=== PATIENT | female | born 1960 | race African-American/Black ===

== ENCOUNTER → 2016-07-16 | Outpatient (REF) ==
[~2016-07-16] MED LIST: AMBIEN 10MG10 MG PO; AMITIZA24 MCG PO; ASPIR-LOW81 MG PO; CARDIZEM CD240 MG PO; CELEXA 20MG20 MG/TAB PO; CRESTOR 10MG10 MG PO; HUMALOG100 U/ML SC; LANTUS100 U/ML SC; LIPITOR40 MG PO; LISINOPRIL/HCTZ1 TA2 PO; PRINZIDE 25 MG-1 TAB PO; RANITIDINE HYD150 MG PO; REGLAN 10MG10 MG/TAB PO; TAZTIA240 PO; VALIUM 5MG T5 MG/TAB PO; ZANTAC 150MG T150 MG PO; [UNRECOGNIZED DRUG - CODE] PO
== END ==
LOC: ZLAB.WCH 11:51
DX: Z01.89 Encounter for other specified special examinations (principal)

== ENCOUNTER → 2017-01-14 | Outpatient (REF) | LOC: ZLAB.WCH 18:30 | DX: Z01.89 Encounter for other specified special examinations (principal) ==

== ENCOUNTER → 2017-04-15 | Outpatient (REF) | LOC: ZLAB.WCH 17:35 | DX: Z01.89 Encounter for other specified special examinations (principal) ==

== ENCOUNTER → 2017-07-08 | Outpatient (REF) | LOC: ZLAB.WCH 18:08 | DX: Z01.89 Encounter for other specified special examinations (principal) ==

== ENCOUNTER → 2017-10-11 | Outpatient (REF) | LOC: ZLAB.WCH 12:34 | DX: Z01.89 Encounter for other specified special examinations (principal) ==

== ENCOUNTER → 2018-02-09 | Outpatient (REF) | LOC: ZLAB.WCH 17:59 | DX: Z01.89 Encounter for other specified special examinations (principal) ==

== ENCOUNTER → 2018-09-04 | Outpatient (REF) | LOC: ZLAB.WCH 15:54 | DX: Z01.89 Encounter for other specified special examinations (principal) ==

== ENCOUNTER 2018-10-05 19:14 | Inpatient (IN) | payer MEDICAID ==
[~2018-10-05] VITALS: Ht 165.1 cm; Wt 84.9 kg
[~2018-10-05 19:14] MED LIST changes: -HUMALOG100 U/ML SC; +HUMALOG100 U/ML SQ; -LANTUS100 U/ML SC; +LANTUS100 U/ML SQ
[2018-10-05 20:08] LABS: BASO % 0.2 % (0.0-2.0); EOS % 0.1 % (0-4.0); GRAN # 15.9 (1.4-6.5); GRAN % 87.4 % (42.2-75.2); HEMOGLOBIN 12.2 g/dl (12.5-16.0); LYMPH # 0.9 (1.2-3.4); LYMPH % 5.1 % (20.0-51.0); MEAN CELL VOLUME 87 fl (80.0-100.0); MEAN CORPUSCULAR HEMOGLOBIN 29 pg (27.0-31.0); MEAN CORPUSCULAR HGB CONC 33 g/dl (33.0-37.0); MEAN PLATELET VOLUME 12.2 fl (7.4-10.4); MONO # 1.1 (0.1-0.6); MONO % 5.9 % (1.7-9.3); PLATELET COUNT 325 K/mm3 (130-400); RED BLOOD COUNT 4.18 M/mm3 (4.10-5.30); REDCELL DISTRIBUTION WIDTH-CV 14.9 % (11.5-14.5)
[2018-10-05 20:09] LABS: HEMATOCRIT 36.5 % (37.0-47.0)
[2018-10-05 20:16] LABS: ALBUMIN 3.5 gm/dL (3.5-5.0); BILIRUBIN,TOTAL 0.8 mg/dL (0.0-1.0); CALCIUM 8.8 mg/dL (8.4-10.2); POTASSIUM 5.1 mmol/L (3.4-5.0); TOTAL PROTEIN 8.2 gm/dL (6.4-8.2)
[2018-10-05 20:19] LABS: CREATININE, serum 8.87 (0.52-1.25)
[2018-10-05 21:13] LABS: ARTERIAL BLD GAS O2 SATURATION 89.6 % (92-100); ARTERIAL BLD GAS TCO2 CT 21.9; ARTERIAL BLOOD GAS BASE EXCESS -4.1 (-2-2); ARTERIAL BLOOD GAS HCO3 20.8 meq/L (22-26); ARTERIAL BLOOD GAS PCO2 37.3 mmHg (35-45); ARTERIAL BLOOD GAS PO2 67.8 mmHg (80-100); ARTERIAL BLOOD GAS pH 7.36 (7.35-7.45)
[2018-10-05 22:43] LABS: COLLECTION METHOD CLEAN CATCH
[2018-10-05 22:52] LABS: PH 5 (5-8); SQUAMOUS EPITHELIAL 0-2 /hpf; URINE APPEARANCE Cloudy; URINE BACTERIA Rare /hpf; URINE BILIRUBIN Negative (NEGATIVE); URINE BLOOD 3+ (NEGATIVE); URINE COLOR Yellow; URINE GLUCOSE 3+ (NEGATIVE); URINE KETONE Negative (NEGATIVE); URINE LEUKOCYTE ESTERASE 2+ (NEGATIVE); URINE NITRATE Negative (NEGATIVE); URINE PROTEIN(semi-quant) 1+ (NEGATIVE); URINE RBC >50 /hpf; URINE UROBILINOGEN Negative (NEGATIVE)
[2018-10-06] VITALS (628 sets, daily range): BP systolic 138–165; BP diastolic 75–93; PULSE 85–95; TEMP 97.2–100.2; O2SAT 50–100
--- NOTE | 2018-10-06 00:01 | NUR ---
Arrived to the unit via stretcher. Patient alert but confused upon arrival. Speech mumbled and difficult to understand. Able to answer some simple questions appropriately although is slow to respond. Answers are also sometimes contracdictory to previous statements. Unable to obtain accurate med list at this time. Hospitalist aware.
[2018-10-06 00:56] LABS: CALCIUM 7.9 mg/dL (8.4-10.2); POTASSIUM 3.7 mmol/L (3.4-5.0)
[2018-10-06 00:58] LABS: CREATININE, serum 7.22 (0.52-1.25)
--- NOTE | 2018-10-06 01:00 | NUR ---
Hospitalist notified of most recent creatine level and blood glucose of 556. Increased insulin drip by 1 unit.
--- NOTE | 2018-10-06 01:50 | NUR ---
Notified hospitalist of latest potassium results. Received order to change fluids to NS W 20K when last NS bolus is finished.
--- NOTE | 2018-10-06 02:33 | NUR ---
Hospitalist notified of greater than 100 decrease in blood glucose over one hr. Decreased insulin drip by 1 u/hr.
--- NOTE | 2018-10-06 02:45 | NUR ---
Hospitalist notified of elevated BP. Systolic 170's. Order for IV PRN Hydralazine given.
--- NOTE | 2018-10-06 03:04 | NUR ---
Patient irritable with staff during cares; prefers to lay curled in a ball which makes accu checks and blood draws difficult. Have to re-orient frequently to situation and remind patient of the importance of obtaining blood sugars, BP, etc so she will allow access to hand and IV's.
[2018-10-06 03:32] LABS: CALCIUM 7.6 mg/dL (8.4-10.2); POTASSIUM 3.7 mmol/L (3.4-5.0)
[2018-10-06 03:38] LABS: CREATININE, serum 6.65 (0.52-1.25)
[2018-10-06 06:02] LABS: CALCIUM 7.7 mg/dL (8.4-10.2); POTASSIUM 3.9 mmol/L (3.4-5.0)
[2018-10-06 06:08] LABS: CREATININE, serum 6.41 (0.52-1.25)
--- NOTE | 2018-10-06 07:07 | NUR ---
Bedside report recieved from OWEN Calvo. Patient sleeps between disturbances at this time. Insulin gtt concentration and rate verified. MIVF running as ordered. LIJ without complication. Peripheral IV sites x2 CDI. Bed in low and locked position, call light within reach, rails up x3, bed alarm armed. Care assumed.
[2018-10-06 07:41] LABS: MAGNESIUM 3.2 mg/dL (1.6-2.3); POTASSIUM 4.1 mmol/L (3.4-5.0)
[2018-10-06 07:42] LABS: CREATININE, serum 6.26 (0.52-1.25)
[2018-10-06 07:55] LABS: MEAN CELL VOLUME 87 fl (80.0-100.0); MEAN CORPUSCULAR HEMOGLOBIN 29 pg (27.0-31.0); MEAN CORPUSCULAR HGB CONC 34 g/dl (33.0-37.0); MEAN PLATELET VOLUME 11.8 fl (7.4-10.4); PLATELET COUNT 314 K/mm3 (130-400); RED BLOOD COUNT 3.78 M/mm3 (4.10-5.30); REDCELL DISTRIBUTION WIDTH-CV 14.6 % (11.5-14.5)
--- NOTE | 2018-10-06 08:00 | NUR ---
Bedside shift report received from OWEN Moore. Patient is lying in bed, supine, and only responds with grumbles at this time. Assessment is completed and documented. Attempted to reorient patient to place, time, and situation. Patient does not indicate understanding. Call light placed within reach. Bed in lowest position. Bed alarm activated.
[2018-10-06 08:04] LABS: HEMATOCRIT 32.8 % (37.0-47.0)
--- NOTE | 2018-10-06 08:05 | NUR ---
Bedside report provided to OWEN Fairchild. Care transferred.
[2018-10-06 08:43] LABS: BAND 11 % (0-10); EOSINOPHIL 2 % (0-4); LYMPHOCYTE 9 % (20.0-51.0); NEUTROPHILS 71 % (42.0-75.2); PLATELET ESTIMATE NORMAL (NORMAL)
[2018-10-06 08:44] LABS: TARGET CELLS 1+
[2018-10-06 09:16] LABS: CALCIUM 7.9 mg/dL (8.4-10.2); POTASSIUM 4.2 mmol/L (3.4-5.0)
[2018-10-06 09:23] LABS: CREATININE, serum 5.94 (0.52-1.25)
[2018-10-06 11:23] LABS: CREATININE, serum 6.01 (0.52-1.25)
--- NOTE | 2018-10-06 12:00 | NUR ---
Patient remains stable at this time. Assessment completed and documented. Bed alarm remains on and functioning appropriately. Call light within reach. Bed in lowest position.
[2018-10-06 13:20] LABS: CALCIUM 8.2 mg/dL (8.4-10.2); POTASSIUM 3.8 mmol/L (3.4-5.0)
[2018-10-06 13:25] LABS: CREATININE, serum 5.96 (0.52-1.25)
--- NOTE | 2018-10-06 14:00 | NUR ---
Patient states she is thirsty. Damp swab used to moisten mouth, but patient states she wants water. Patient educated that she is NPO at this time. Swallowing assessed with 1 ice chip at this time. Patient does well. Patient given another ice chip and patient coughs. NPO status maintained and no more ice chips will be given at this time.
--- NOTE | 2018-10-06 15:00 | NUR ---
Patient's peripheral IV located in her right breast removed with no complications. Cotton ball and bandaid applied to site.
[2018-10-06 15:38] LABS: CALCIUM 8.1 mg/dL (8.4-10.2); POTASSIUM 3.6 mmol/L (3.4-5.0)
[2018-10-06 15:46] LABS: CREATININE, serum 5.74 (0.52-1.25)
[2018-10-06 15:57] LABS: COLLECTION METHOD CLEAN CATCH
[2018-10-06 16:29] LABS: MUCOUS Present /lpf; PH 5 (5-8); SQUAMOUS EPITHELIAL 0-2 /hpf; URINE APPEARANCE Cloudy; URINE BACTERIA Rare /hpf; URINE BILIRUBIN Negative (NEGATIVE); URINE BLOOD 2+ (NEGATIVE); URINE COLOR Yellow; URINE GLUCOSE Negative (NEGATIVE); URINE KETONE Negative (NEGATIVE); URINE LEUKOCYTE ESTERASE 3+ (NEGATIVE); URINE NITRATE Negative (NEGATIVE); URINE PROTEIN(semi-quant) 1+ (NEGATIVE); URINE RBC >50 /hpf; URINE UROBILINOGEN Negative (NEGATIVE); URINE WBC >50 /hpf
--- NOTE | 2018-10-06 16:32 | NUR ---
Patient remains stable with no significant changes. Patient remains confused and mostly responds with mumbles at this time. Family updated throughout the shift (Patient's daugther and sister) via telephone. Patient has had no visitors yet today. Refer to titration documentation for insulin gtt.
[2018-10-06 17:14] LABS: CALCIUM 8.2 mg/dL (8.4-10.2); POTASSIUM 3.6 mmol/L (3.4-5.0)
[2018-10-06 17:16] LABS: CREATININE, serum 5.73 (0.52-1.25)
[2018-10-06 17:46] LABS: URINE PROTEIN:CREAT RATIO 1.46 (0.00-0.14)
--- NOTE | 2018-10-06 19:00 | NUR ---
Patient's at bedside to assist with discharge. Patient transferred out of hospital via wheelchair by RN with no complications. Patient assisted into passenger side of vehicle with driving.
--- NOTE | 2018-10-06 19:10 | NUR ---
Bedside shift report given to OWEN Ritter. Patient is lying in bed in no apparent distress. Occasionally the patient will mumble and groan, but remains confused and does not answer questions appropriately. Refer to titration documentation for medication rate changes. Call light within reach. Bed in lowest position. Bed alarm on and functioning appropriately.
[2018-10-06 19:20] LABS: CALCIUM 8.3 mg/dL (8.4-10.2); POTASSIUM 3.4 mmol/L (3.4-5.0)
[2018-10-06 19:22] LABS: CREATININE, serum 5.5 (0.52-1.25)
--- NOTE | 2018-10-06 19:40 | NUR ---
RECEIVED REPORT FROM OWEN SAUER. MEDICATIONS AND LINES VARIFIED. PATIENT WAS RESTING IN BED AT THIS TIME. WILL CONTINUE TO MONITOR PATIENT.
--- NOTE | 2018-10-06 20:42 | NUR ---
PATIENT WAS ABLE TO TELL ME HER NAME AND DATE OF . SHE WAS UNSURE OF WHERE SHE WAS AT AND WHAT DAY IT WAS. PATIENT SEEMS TO BE RESTING COMFORTABLY IN BED AT THIS TIME. WILL CONTINUE TO MONITOR PATIENT.
[2018-10-06 21:20] LABS: CALCIUM 8.4 mg/dL (8.4-10.2); POTASSIUM 3.4 mmol/L (3.4-5.0)
[2018-10-06 21:23] LABS: CREATININE, serum 5.41 (0.52-1.25)
--- NOTE | 2018-10-06 22:50 | NUR ---
PATIENTS BLOOD SUGAR DROPPED TO SUDDENLY SO I STOPPED THE DRIP FOR 30 MINUTES ACCORDING TO THE ORDER PARAMETERS. I WILL DECREASE THE INSULIN DOSEAGE BY 2 UNITS WHEN I RESTART THE DRIP.
--- NOTE | 2018-10-06 22:54 | NUR ---
RESTARTED THE INSULIN DRIP AND DECREASED TO AMOUNT FROM 11 UNITS/HR TO 9 UNITS/HR ACCORDING TO THE INSULIN PARAMETER PROTOCOL.
[2018-10-06 23:22] LABS: CALCIUM 8.4 mg/dL (8.4-10.2); POTASSIUM 3.4 mmol/L (3.4-5.0)
[2018-10-06 23:24] LABS: CREATININE, serum 5.26 (0.52-1.25)
[2018-10-07] VITALS (895 sets, daily range): BP systolic 148–164; BP diastolic 72–90; PULSE 84–90; TEMP 98.7–99.4; O2SAT 76–100
--- NOTE | 2018-10-07 00:26 | NUR ---
PATIENT BLOOD SUGAR WAS STILL TO LOW ACCORDING TO PROTOCOL. TURNED OFF INSULIN DRIP. WILL RECHECK BLOOD SUGAR IN 30 MINUTES AND RESUME DRIP THEN.
--- NOTE | 2018-10-07 01:07 | NUR ---
decreased drip titration per protocol parameters.
--- NOTE | 2018-10-07 02:21 | NUR ---
increased insulin drip per protocol parameters. patients blood glucose was higher than recommended range, 120-200. increased drip by 1 unit.
--- NOTE | 2018-10-07 03:25 | NUR ---
INCREASED PATIENTS DRIP RATE PER PHYSICIANS ORDERS.
--- NOTE | 2018-10-07 04:23 | NUR ---
INCREASED INSULIN DRIP PER PHYSICIAN PROTOCOL ACCORDING TO PATIENTS MOST RECENT BLOOD SUGAR.
--- NOTE | 2018-10-07 05:17 | NUR ---
INSULIN DRIP INCREASED PER PHYSICIANS PARAMETERS.
[2018-10-07 05:28] LABS: BASO # 0.1 (0.0-0.2); BASO % 0.2 % (0.0-2.0); EOS # 0.1 (0.0-0.7); EOS % 0.6 % (0-4.0); GRAN # 18.1 (1.4-6.5); GRAN % 83.6 % (42.2-75.2); HEMOGLOBIN 10.2 g/dl (12.5-16.0); LYMPH # 1.5 (1.2-3.4); LYMPH % 6.8 % (20.0-51.0); MEAN CELL VOLUME 87 fl (80.0-100.0); MEAN CORPUSCULAR HEMOGLOBIN 29 pg (27.0-31.0); MEAN CORPUSCULAR HGB CONC 34 g/dl (33.0-37.0); MEAN PLATELET VOLUME 11.4 fl (7.4-10.4); MONO % 4.8 % (1.7-9.3); PLATELET COUNT 304 K/mm3 (130-400); RED BLOOD COUNT 3.49 M/mm3 (4.10-5.30); REDCELL DISTRIBUTION WIDTH-CV 14.8 % (11.5-14.5)
[2018-10-07 05:29] LABS: HEMATOCRIT 30.2 % (37.0-47.0)
[2018-10-07 05:39] LABS: ALBUMIN 2.4 gm/dL (3.5-5.0); BILIRUBIN,TOTAL 0.5 mg/dL (0.0-1.0); CALCIUM 8.1 mg/dL (8.4-10.2); POTASSIUM 3.1 mmol/L (3.4-5.0); TOTAL PROTEIN 6.2 gm/dL (6.4-8.2)
[2018-10-07 05:44] LABS: CREATININE, serum 5.2 (0.52-1.25)
--- NOTE | 2018-10-07 05:56 | NUR ---
CALLED [facility] AND REPORTED CRITICAL WBC COUNT OF 21.7 TO NURSE POLK.
[2018-10-07 06:12] LABS: BAND 7 % (0-10); EOSINOPHIL 2 % (0-4); HYPOCHROMIA 2+; LYMPHOCYTE 11 % (20.0-51.0); NEUTROPHILS 75 % (42.0-75.2); PLATELET ESTIMATE NORMAL (NORMAL)
--- NOTE | 2018-10-07 06:35 | NUR ---
increased insulin drip per physicians parameters.
--- NOTE | 2018-10-07 07:34 | NUR ---
decreased insulin drip per physicians parameters.
--- NOTE | 2018-10-07 08:34 | NUR ---
gave report to marina walsh.
--- NOTE | 2018-10-07 11:16 | NUR ---
SW attempted to meet with patient about discharge planning. Patient was sleeping. SW will try back later today.
--- NOTE | 2018-10-07 13:36 | NUR ---
SW attempted to meet, again. Patient reports she is too tired and would like some coffee. SW reported this to patients nurse. SW will try back later.
--- NOTE | 2018-10-07 14:28 | NUR ---
Pt currently resting in bed VSS at this time, denies pain, A/O x 2, but asking questions to reorient herself. Lungs clear on RA, BP stable with no need to give any bp meds on my shift. Pt up out of bed to use bedside cammode. Remains on insulin gtt and d5 1/2 NS decrease to 100ml/hr per Dr. Abdul's orders. Will continue to check BG. Pt Alert and awaiting dinner. RN bedside swallow determined not coughing or desating with oral intake of jello and water. Will order meal and continue to monitor.
--- NOTE | 2018-10-07 19:15 | NUR ---
Bedside report received from OWEN Guillen.
--- NOTE | 2018-10-07 20:00 | NUR ---
Assessment complete. Patient is laying in bed resting at this time. Patient is alert, but not oriented. Patient thinks she is in [place]. Patient did know that Mothers Day was recently, but was not able to recall day, year, or reason she is in the hospital. Patient does follow commands. Assessment reveals tachypnea with clear lung sounds and diminished bases, breaths are shallow and regular. HR is regular and normal sounds are heard. Bowel sounds are active, abdomen is soft and nontender. Patient has no complaints of pain. Patient states, "I want my meds and I want to sleep." Medications to be provided. No further needs at this time. Will continue to monitor. Call light within reach.
[2018-10-07 22:28] LABS: TRICYCLIC ANTIDEPRESS URINE NEGATIVE
[2018-10-08] VITALS (731 sets, daily range): BP systolic 134–193; BP diastolic 69–102; PULSE 83–90; TEMP 98.6–100.8; O2SAT 75–100
--- NOTE | 2018-10-08 | NUR ---
Assessment complete. Patient asleep at this time, but easily awakens to name. Assessment reveals no changes from previous exam. Patient follows commands, but is still confused and still thinks she is in [place] despite informing her earlier that we are in [place]. Patient follows commands. Patient is still tachypneic with shallow breaths. Patient has no complaints of pain. Patient does have a fever of 100.8. Will notify provider. Patient has no further needs at this time. Will continue to monitor. Call light within reach.
--- NOTE | 2018-10-08 04:00 | NUR ---
Patient awake at this time and calls this nurse into the room. Patient states that she is hungry and wants a bath. Some chicken broth and jello are provided. Explained that the kitchen does not open until 630. She confirmed understanding and provided her breakfast order for when they open. Patient is much more alert than previously and she is more oriented. Patient now knows where she is and what town. States the correct year. She is unable to say the month, but is still aware that mother's day was recently. Assessment complete. No changes phsyically from previous exam. Fever has declined and is now WNL. Patient has complaints of a mild headache, but has already received tylenol. Patient's blood sugar is also down to 152. Patient has no other needs at this time. Will gather supplies for a bedbath. Will continue to monitor. Call light within reach.
--- NOTE | 2018-10-08 04:35 | NUR ---
Patient now denies wanting bath. Will continue to monitor. Call light within reach.
--- NOTE | 2018-10-08 05:05 | NUR ---
OWEN Polk in the room and found patient's left IJ TLC had been pulled out by the patient. Catheter was present and intact when previously in the room. This nurse performed an assessment. Patient shows no signs of bleeding. Tissues surrounding the area are soft to the touch, no blood is noted on the bedding around her. Blue Catheter tip is intact, verified by OWEN Polk and OWEN Calvo. Occlusive dressing placed over site. Nothing further at this time.
--- NOTE | 2018-10-08 05:19 | NUR ---
RN at bedside to draw am labs. Noted that IJ central line was pulled out and lying on patient. Tip of catheter intact; site not bleeding. Pt in no distress at this time and lying calmly in bed. Tegaderm and guaze placed over site. Hospitalist notified.
--- NOTE | 2018-10-08 07:15 | NUR ---
Patient is refusing to allow anyone to draw labs or put an IV at this time. Patient currently has no lines.
--- NOTE | 2018-10-08 07:30 | NUR ---
Bedside report given to OWEN Fields.
--- NOTE | 2018-10-08 08:00 | NUR ---
Shift assessment complete at this time. Plan of care reviewed at bedside with patient. At this time, Pt is currently refusing all IV starts and lab draws. No intravenous access is currently in place after Pt removal of central line earlier in morning. BP markedly elevated, Dr. Hirsch notified and aware, will place orders for resumption of PO meds and PICC line placement. Pt denies pain or any other discomfort. Bed in low position, call light within reach. Will continue to monitor.
[2018-10-08 10:37] LABS: MEAN CELL VOLUME 87 fl (80.0-100.0); MEAN CORPUSCULAR HGB CONC 33 g/dl (33.0-37.0); PLATELET COUNT 333 K/mm3 (130-400); RED BLOOD COUNT 3.46 M/mm3 (4.10-5.30); REDCELL DISTRIBUTION WIDTH-CV 15.3 % (11.5-14.5)
[2018-10-08 10:43] LABS: HEMATOCRIT 30.2 % (37.0-47.0); HEMOGLOBIN 9.9 g/dl (12.5-16.0); MEAN CORPUSCULAR HEMOGLOBIN 29 pg (27.0-31.0)
[2018-10-08 10:56] LABS: CALCIUM 8.4 mg/dL (8.4-10.2); PHOSPHOROUS 3.7 mg/dL (2.5-4.5); POTASSIUM 3.2 mmol/L (3.4-5.0)
[2018-10-08 10:57] LABS: CREATININE, serum 4.41 (0.52-1.25)
--- NOTE | 2018-10-08 13:41 | NUR ---
SW met with patient about discharge planning. Patient lives at home alone. Patient reports she want to go home. Patient's PCP is Dr Olsen and she obtains prescriptions from [facility]. Patient uses a cane but no other DME is reported. Patient has used home health in the past but does not currently use those services. Patient has a DPOA and a copy is in the EMR. Patient will be seen by PT and OT. SW will meet with patient if PT/OT recommend any services once she discharges. SW will continue to follow and assist with any discharge needs.
[2018-10-08 16:57] LABS: URINE PROTEIN:CREAT RATIO 1.1 (0.00-0.14)
--- NOTE | 2018-10-08 19:40 | NUR ---
Bedside report received from OWEN Fields
--- NOTE | 2018-10-08 19:42 | NUR ---
Bedside report given to OWEN Dueñas.
--- NOTE | 2018-10-08 20:00 | NUR ---
Assessment comnplete. Patient resting in bed at this time watching TV. She is alert and oriented and following commands. Lung sounds remain clear with diminished bases. HR regular and WNL. Bowel sounds active. All other findings WNL. Pericare and catheter care provided. Patient has already had a linen change and bath just prior to start of shift. Patient has no other needs at this time. Will continue to monitor. Call light within reach.
--- NOTE | 2018-10-08 21:40 | NUR ---
Patient found to be trying to get out of bed. Patient states, "I am trying to visit with my girlfriend". Let the patient know that there is no one here to visit her right now. Assisted patient to lay back and get comfortable in the blankets. Will continue to monitor. Call light within reach.
[2018-10-09] VITALS (430 sets, daily range): BP systolic 125–147; BP diastolic 56–89; PULSE 79–102; TEMP 97.8–99.2; O2SAT 70–100
--- NOTE | 2018-10-09 | NUR ---
Patient sleeping soundly. Awakens to name. No complaints of pain or signs of distress. Patient requests another glucerna, provided. Vitals remain stable. No further needs. Will continue to monitor. Call light within reach.
--- NOTE | 2018-10-09 04:00 | NUR ---
Patient asleep at this time. Awakens easily to name. No complaints of pain. Vitals remain WNL. No signs of distress. No further needs at this time. Will continue to monitor. Call light within reach.
[2018-10-09 04:51] LABS: MEAN CELL VOLUME 88 fl (80.0-100.0); MEAN CORPUSCULAR HGB CONC 33 g/dl (33.0-37.0); MEAN PLATELET VOLUME 11.2 fl (7.4-10.4); PLATELET COUNT 307 K/mm3 (130-400); RED BLOOD COUNT 3.14 M/mm3 (4.10-5.30); REDCELL DISTRIBUTION WIDTH-CV 15.3 % (11.5-14.5)
[2018-10-09 05:01] LABS: HEMATOCRIT 27.6 % (37.0-47.0); HEMOGLOBIN 9.1 g/dl (12.5-16.0); MEAN CORPUSCULAR HEMOGLOBIN 29 pg (27.0-31.0)
[2018-10-09 05:08] LABS: ALBUMIN 2.5 gm/dL (3.5-5.0); BILIRUBIN,TOTAL 0.3 mg/dL (0.0-1.0); CALCIUM 8.2 mg/dL (8.4-10.2); MAGNESIUM 2.2 mg/dL (1.6-2.3); POTASSIUM 3.6 mmol/L (3.4-5.0); TOTAL PROTEIN 6.6 gm/dL (6.4-8.2)
[2018-10-09 05:39] LABS: BAND 20 % (0-10); EOSINOPHIL 2 % (0-4); LYMPHOCYTE 7 % (20.0-51.0); METAMYELOCYTE 2 % (0-0); NEUTROPHILS 66 % (42.0-75.2)
[2018-10-09 05:42] LABS: PLATELET ESTIMATE NORMAL (NORMAL)
[2018-10-09 05:43] LABS: ANISOCYTOSIS 1+; HYPOCHROMIA 1+
[2018-10-09 05:46] LABS: SCHISTOCYTES 1+; TARGET CELLS 1+
--- NOTE | 2018-10-09 07:15 | NUR ---
BEDSIDE REPORT RECEIVED FROM OWEN MELLO. PATIENT CURRENTLY EATING BREAKFAST. SHE HAS NO C/O'S. CARE ASSUMED.
--- NOTE | 2018-10-09 07:39 | NUR ---
Bedside report given to OWEN Deras
--- NOTE | 2018-10-09 09:00 | NUR ---
PATIENT UP WALKING IN [place] WITH PT. SHE IS STEADY WITH WALKER AND GAIT BELT. SHE STATES SHE'S READY TO GO HOME. I RESPOND BY SAYING THE HOSPITALIST STILL NEEDS TO SEE HER TODAY.
--- NOTE | 2018-10-09 10:00 | NUR ---
PATIENT GETS UP OUT OF RECLINER WITHOUT ASSISTANCE. CHAIR ALARM IN PLACE AND GOES OFF WHEN SHE GET'S UP. SHE GOES BACK TO BED AT THIS TIME. BED ALARM ALSO ACTIVATED. SHE IS REMINDED TO CALL FOR HELP WHEN SHE GETS UP. SHE STATES THAT SHE WANTS TO GO HOME. I REMIND HER THAT SHE WILL BE GOING TO THE MEDICAL FLOOR TODAY AND SHE WILL HAVE MUCH LESS MONITORS ATTACHED TO HER.
--- NOTE | 2018-10-09 11:22 | NUR ---
ROOM ASSIGNMENT FOR MEDICAL ROOM 314 RECEIVED. ATTEMPTED TO CALL REPORT TO OWEN MCCAIN. SHE IS UNAVAILABLE. WILL TRY AGAIN SOON.
--- NOTE | 2018-10-09 12:59 | NUR ---
REPORT GIVEN TO OWEN MCCAIN. JULIO TAKEN UP TO ROOM 314. SHE IS ON TELEMETRY MONITORING. PATIENT UPSET THAT SHE HAS TO STAY IN THE HOSPITAL. PRIOR TO LEAVING ICU, SHE WAS THROWING THINGS FROM HER TRAY ACROSS THE ROOM YELLING AND SCREAMING. DURING HER OUTBURST, SHE YELLED. "You fking moisespaula, i want to go home! Call me a cab! I've been waiting to leave this room since 2 in the morning! You told me at 2 AM i was getting out of here!"
--- NOTE | 2018-10-09 13:00 | NUR ---
Arrived to the room about this time. No pain or needs reported. The call light and bed alarm are in place and the patient made comfortable. Awaiting lunch at this time. BS 330, 10 units to be given with meal. No other needs at this time. The patient was made a fall risk patient.
--- NOTE | 2018-10-09 14:30 | NUR ---
The patient is very anxious and climbing out of the bed. Refusing telemetry. Bailon catheter removed. Bed alarm in place.
--- NOTE | 2018-10-09 16:01 | NUR ---
Valium given for anxiousness. The patient continues to pull at telemetry. ALEJA Salinas called and notified of patient concerns. Telemetry discontinued.
--- NOTE | 2018-10-09 16:13 | NUR ---
After education of the need to stay. This patient reported she would " be good" and wait until tomorrow for further information related to her labs and diagnosis. Resting in bed at this time, the bed alarm is in place.
--- NOTE | 2018-10-09 17:10 | NUR ---
The patient was found yelling in the room, pushing over her night stand. The patient was demanding to go home. The patient's family was called and did not answer. Dr. Hirsch was called, see new orders. Seroquel 50mg given PRN for agitation and violent behavior. The patient is awaiting a meal at this time.
--- NOTE | 2018-10-09 17:39 | NUR ---
RT UNAWARE PT HAD BEEN TRANSFERRED TO FLOOR
--- NOTE | 2018-10-09 20:21 | NUR ---
Resting in bed. Partially orientated. Assessment complete. Lungs clear. Heart sounds normal. Bowels active x4. Pulses present throughout. PICC to right upper arm flushes without complications. Denies pain. Blood sugar 238, provided with insulin as ordered. Tolerated well. Denies needs at this time. Fall precaution in place. Bed alarm on. Call light in reach.
--- NOTE | 2018-10-09 21:30 | NUR ---
Patient displays aggitation at this time. Requesting to leave AMA due to inabililty to sleep. Offered PRN medications to aide with relaxation. Patient refuses. Wants staff to call and talk to spouse-Jones. Left voicemail for Jones. Agrees to return to bed and rest while waiting on a call back. Bed alarm in place.
--- NOTE | 2018-10-09 22:45 | NUR ---
Bed alarm sounding. Patient in room hitting computer stating staff is watching her through computer. Asked patient to stop hitting computer. Patient turned to this staff member and began to push. Requested patient to please take hands off this staff member, patient moved towards face and stated "what you going to do about it." Asked patient what she is needing. Patient requested to call a cab and go home. Patient walked towards staff and pushed again stating "let me out of here." House Supervisior called. Patient cursing and walking hallways. Tried redirection of patient. OWEN Dorantes talking with patient- patient unable to state what city, states year is 1920, knows she would like a cab ride to [place]. Patient agreed to return to bed at 2305. OWEN Dorantes providing patient with EMANUEL crespo and kiah. Now resting in bed with bed alarm in place.
[2018-10-10 00:08] LABS: FOLATE (FOLIC ACID) 6.6 ng/mL (7.0-31.4)
[2018-10-10 04:36] VITALS: BP 134/53; PULSE 85; TEMP 98.3
--- NOTE | 2018-10-10 05:45 | NUR ---
Patient slept well throughout shift after taking seroquel. Resting in bed this AM. Call light in reach. Bed alarm in place.
--- NOTE | 2018-10-10 06:54 | NUR ---
Report given to OWEN Rick.
--- NOTE | 2018-10-10 07:30 | NUR ---
PT SLEEPING, REQUEST BY NURSING THAT SHE NOT BE AWAKENED
[2018-10-10 08:35] VITALS: BP 140/82; PULSE 93; TEMP 98.6
[2018-10-10 09:27] LABS: BASO % 0.2 % (0.0-2.0); EOS # 0.2 (0.0-0.7); EOS % 1.3 % (0-4.0); GRAN # 13.3 (1.4-6.5); GRAN % 77.6 % (42.2-75.2); LYMPH % 11.8 % (20.0-51.0); MEAN CELL VOLUME 88 fl (80.0-100.0); MEAN CORPUSCULAR HGB CONC 34 g/dl (33.0-37.0); MEAN PLATELET VOLUME 10.8 fl (7.4-10.4); MONO % 5.8 % (1.7-9.3); PLATELET COUNT 345 K/mm3 (130-400); RED BLOOD COUNT 3.08 M/mm3 (4.10-5.30); REDCELL DISTRIBUTION WIDTH-CV 15.1 % (11.5-14.5)
[2018-10-10 09:28] LABS: HEMATOCRIT 27.1 % (37.0-47.0); HEMOGLOBIN 9.1 g/dl (12.5-16.0); MEAN CORPUSCULAR HEMOGLOBIN 30 pg (27.0-31.0)
[2018-10-10 09:37] LABS: CALCIUM 8.6 mg/dL (8.4-10.2); CREATININE, serum 3.54 (0.52-1.25); POTASSIUM 3.7 mmol/L (3.4-5.0)
--- NOTE | 2018-10-10 09:37 | NUR ---
Pt assessment complete. Pt sitting in bed upon entry, she is alert but conversation is confused for the most part. Pt keeps stating she wants to get out of the hospital, it is reiterated to the patient the need to stay. Pt is highly distractible and jumps subject to subject. She is aware of where she is but unable to state the date. Pt denies pain. No SOB. Pt denies any abdominal pain N/V/D. Breakfast ordered for patient, bed alarm in place. Will continue to monitor.
[2018-10-10 12:10] VITALS: BP 126/66; PULSE 91; TEMP 98.7
[2018-10-10 16:22] VITALS: BP 136/66; PULSE 86; TEMP 99.3
--- NOTE | 2018-10-10 18:30 | NUR ---
Pt had uneventful day. She denied any pain. No N/V/D. Pt impulsive and continued to have scrambled speech. Pt tolerated diet without complications. Has no needs at this time. Call light within reach, bed alarm in place.
[2018-10-10 20:11] VITALS: BP 154/77; PULSE 95; TEMP 98.1
--- NOTE | 2018-10-10 20:58 | NUR ---
Pt in bed napping, no C/O pain at this time, shift assessments complete, left Pt call light in reach, bed in lowest position, bed alarm on.
[2018-10-10 23:35] VITALS: BP 154/75; PULSE 98; TEMP 98.9
[2018-10-11 04:44] VITALS: BP 127/69; PULSE 89; TEMP 99
--- NOTE | 2018-10-11 05:31 | NUR ---
Pt slept during the night, she has been up to the restroom twice during the night, no C/O pain, VS have remained stable.
[2018-10-11 06:05] LABS: MEAN CELL VOLUME 89 fl (80.0-100.0); MEAN CORPUSCULAR HGB CONC 32 g/dl (33.0-37.0); MEAN PLATELET VOLUME 10.7 fl (7.4-10.4); PLATELET COUNT 326 K/mm3 (130-400); RED BLOOD COUNT 2.91 M/mm3 (4.10-5.30); REDCELL DISTRIBUTION WIDTH-CV 15.1 % (11.5-14.5)
[2018-10-11 06:06] LABS: HEMATOCRIT 25.9 % (37.0-47.0); HEMOGLOBIN 8.4 g/dl (12.5-16.0); MEAN CORPUSCULAR HEMOGLOBIN 29 pg (27.0-31.0)
[2018-10-11 06:19] LABS: ALBUMIN 2.7 gm/dL (3.5-5.0); BILIRUBIN,TOTAL 0.3 mg/dL (0.0-1.0); CALCIUM 8.4 mg/dL (8.4-10.2); CREATININE, serum 3.14 (0.52-1.25); MAGNESIUM 2.1 mg/dL (1.6-2.3); POTASSIUM 3.5 mmol/L (3.4-5.0); TOTAL PROTEIN 7.1 gm/dL (6.4-8.2)
[2018-10-11 07:19] VITALS: BP 128/64; PULSE 86; TEMP 99.3
--- NOTE | 2018-10-11 07:36 | NUR ---
Pt assessment complete. Pt is laying in bed upon entry, she is alert and oriented to person and time, she thinks she is in [place]. Reoriented easily. Pt denies pain at this time. No N/V/D. Sugar 46 this am, juice and ice cream provided per patient request. Breakfast ordered. She denies further needs. Call light within reach.
[2018-10-11 08:29] LABS: BAND 3 % (0-10); EOSINOPHIL 3 % (0-4); HYPOCHROMIA 2+; LYMPHOCYTE 23 % (20.0-51.0); MICROCYTOSIS 1+; NEUTROPHILS 67 % (42.0-75.2); PLATELET ESTIMATE NORMAL (NORMAL)
[2018-10-11 12:05] VITALS: BP 117/59; PULSE 82; TEMP 98.2
[2018-10-11 17:16] VITALS: BP 133/64; PULSE 77; TEMP 98.2
--- NOTE | 2018-10-11 18:49 | NUR ---
Pt had uneventful day, no pain through the day. Pt has had good appetite, no N/V. Pt anxious to discharge, POC discussed with patient who settles down quickly. No needs at this time. Call light within reach.
[2018-10-11 19:42] VITALS: BP 129/62; PULSE 85; TEMP 98.7
--- NOTE | 2018-10-11 19:45 | NUR ---
Shift assess complete. Pt resting in bed, a&o c frequent confused statements. Pt cooperative c cares. PICC line patent c good blood return. Tele in place. Pt denies needs at this time. Call light in reach, bed alarm on. Will continue to monitor.
[2018-10-11 23:35] VITALS: BP 125/58; PULSE 78; TEMP 98.7
[2018-10-12 04:58] VITALS: BP 148/80; PULSE 94; TEMP 97.8
[2018-10-12 06:24] LABS: BASO % 0.3 % (0.0-2.0); EOS # 0.2 (0.0-0.7); EOS % 1.1 % (0-4.0); GRAN % 79.1 % (42.2-75.2); LYMPH % 13.1 % (20.0-51.0); MEAN CELL VOLUME 92 fl (80.0-100.0); MEAN CORPUSCULAR HGB CONC 31 g/dl (33.0-37.0); MONO # 0.8 (0.1-0.6); MONO % 5.2 % (1.7-9.3); PLATELET COUNT 351 K/mm3 (130-400); RED BLOOD COUNT 2.86 M/mm3 (4.10-5.30); REDCELL DISTRIBUTION WIDTH-CV 15.5 % (11.5-14.5)
[2018-10-12 06:27] LABS: HEMATOCRIT 26.4 % (37.0-47.0); HEMOGLOBIN 8.3 g/dl (12.5-16.0); MEAN CORPUSCULAR HEMOGLOBIN 29 pg (27.0-31.0)
[2018-10-12 06:35] LABS: CALCIUM 8.5 mg/dL (8.4-10.2); CREATININE, serum 2.73 (0.52-1.25); POTASSIUM 3.7 mmol/L (3.4-5.0)
[2018-10-12 07:39] VITALS: BP 139/62; PULSE 87; TEMP 99.5
[2018-10-12] MEDS ORDERED: FOLIC ACID 11 MG/TA1 PO (11:48)
[2018-10-12] MEDS ORDERED: AMBIEN 10MG10 MG PO (11:49)
[2018-10-12] MEDS ORDERED: OMNICEF 300MG300 MG PO (11:50)
[2018-10-12 12:38] LABS: IRON,SERUM 44 ug/dL (35-150)
[2018-10-12 12:39] LABS: RETIC # 0.06 M/mm3 (0.02-0.16); RETIC % 2.2 % (0.5-3.52)
[2018-10-12 12:47] LABS: TOTAL IRON BINDING CAPACITY 248 ug/dL (265-497)
[2018-10-12 13:11] VITALS: BP 148/62; PULSE 82; TEMP 97.9
[2018-10-12 13:14] LABS: FERRITIN 350 ng/mL (11-264)
--- NOTE | 2018-10-12 13:23 | NUR ---
SW attended clinical rounds to discuss discharge. Patient reports would like to go home today. PT and OT are not recommending any services upon discharge. PT did request patient use a walker. Doctor inquired if patient would be agreeable to correction for medication management. SW met with patient about DME choice and home health choice. Patient reports she has a walker at home. Patient was given home health choices that services [facility]. Patient chose [facility]. SW faxed referral but Saniya reports they do not accept patient's insurance. ROQUE met with patient again and she chose [facility]. SW faxed referral. Patient also reports she has a walker at home. Patient also requested SW contact her friend Sebas to inquire if he can citrus picker patient this afternoon. SW contact Sebas and left two messages.
--- NOTE | 2018-10-12 14:57 | NUR ---
ROQUE rec'd a call from Geoffrey at [facility]. Geoffrey reports they are not accepting new patient's for long term right now. ROQUE met with patient and she chose [facility]. ROQUE faxed referral and contacted Kumar. Patient's friend Sebas is also here to take patient home when she is discharged.
--- NOTE | 2018-10-12 15:25 | NUR ---
Discharge education completed with the patient and her "fiancee" all questions answered per this nurse. PICC line removed per the PICC RNShalonda. Escorted out via wheelchair and Via [facility] staff.
--- NOTE | 2018-10-12 17:00 | NUR ---
Patient discharge home today (10/12) with [facility] for [facility]dc. SW faxed discharge orders.
== END 2018-10-12 15:42 | disposition home or self-care (01) | DRG 871 ==
LOC: COL.ER 19:14 → MEDICAL 21:36 → ICU 21:36 → MEDICAL 10-09 12:33
PROVIDERS: Emergency Medicine; Hospitalist; Internal Medicine; Nurse Practitioner Family; Physician Assistant; ADMIT Internal Medicine
PROC: 02HV33Z Insertion of Infusion Device into Superior Vena Cava, Percutaneous Approach (ICD-10-PCS; principal; 2018-10-05)
DX: A41.9 Sepsis, unspecified organism (principal); E10.10 Type 1 diabetes mellitus with ketoacidosis without coma; J96.01 Acute respiratory failure with hypoxia; N17.9 Acute kidney failure, unspecified; K86.1 Other chronic pancreatitis; G93.40 Encephalopathy, unspecified; N39.0 Urinary tract infection, site not specified; E86.0 Dehydration; E78.5 Hyperlipidemia, unspecified; K21.9 Gastro-esophageal reflux disease without esophagitis; F31.9 Bipolar disorder, unspecified; D64.9 Anemia, unspecified; I10 Essential (primary) hypertension; F41.0 Panic disorder [episodic paroxysmal anxiety]; E10.42 Type 1 diabetes mellitus with diabetic polyneuropathy; J44.9 Chronic obstructive pulmonary disease, unspecified; E83.39 Other disorders of phosphorus metabolism; E66.9 Obesity, unspecified; R10.9 Unspecified abdominal pain; B96.20 Unspecified Escherichia coli [E. coli] as the cause of diseases classified elsewhere; F17.210 Nicotine dependence, cigarettes, uncomplicated; F41.9 Anxiety disorder, unspecified; R74.0 Nonspecific elevation of levels of transaminase and lactic acid dehydrogenase [LDH]; Z88.9 Allergy status to unspecified drugs, medicaments and biological substances; Z88.5 Allergy status to narcotic agent; Z91.14 Patient's other noncompliance with medication regimen
CPT/HCPCS: 99223-AI; 99232-AI; 99233-AI; 99239; A4216; C1751; J0360; J0696; J1644; J1815; J2543; J3480; J7030

== ENCOUNTER 2018-11-28 15:56 | Emergency (ER) | payer MEDICAID ==
[2008-12-06 12:56] VITALS: BP 158/91
[~2018-11-28] VITALS: Ht 167.6 cm; Wt 79.1 kg
[~2018-11-28 15:56] MED LIST changes: +FOLIC ACID 11 MG/TA1 PO; +OMNICEF 300MG300 MG PO
[2018-11-28 16:13] VITALS: TEMP 97.9
[2018-11-28 17:56] LABS: BASO % 0.2 % (0.0-2.0); GRAN # 10.8 (1.4-6.5); GRAN % 86.4 % (42.2-75.2); HEMATOCRIT 46.3 % (37.0-47.0); HEMOGLOBIN 15.2 g/dl (12.5-16.0); LYMPH # 1.3 (1.2-3.4); LYMPH % 10.3 % (20.0-51.0); MEAN CELL VOLUME 89 fl (80.0-100.0); MEAN CORPUSCULAR HEMOGLOBIN 29 pg (27.0-31.0); MEAN CORPUSCULAR HGB CONC 33 g/dl (33.0-37.0); MEAN PLATELET VOLUME 11.3 fl (7.4-10.4); MONO # 0.4 (0.1-0.6); MONO % 2.8 % (1.7-9.3); PLATELET COUNT 287 K/mm3 (130-400); RED BLOOD COUNT 5.23 M/mm3 (4.10-5.30); REDCELL DISTRIBUTION WIDTH-CV 13.7 % (11.5-14.5)
[2018-11-28 18:08] LABS: ALBUMIN 4.6 gm/dL (3.5-5.0); BILIRUBIN,TOTAL 0.7 mg/dL (0.0-1.0); C-REACTIVE PROTEIN 1.8 mg/dL (0.0-0.9); CALCIUM 10.5 mg/dL (8.4-10.2); CREATININE, serum 1.14 (0.52-1.25); POTASSIUM 3.4 mmol/L (3.4-5.0); TOTAL PROTEIN 9.4 gm/dL (6.4-8.2)
[2018-11-28 18:26] LABS: HIV 1/2 Antibodies Non-Reactive; HIV-1p24 Antigen Non-Reactive
[2018-11-28] MEDS ORDERED: ULTRAM 50MG TAB50 MG PO (19:20)
[2018-11-28] MEDS ORDERED: ZOFRAN ODT4 MG PO (19:20)
[2018-11-28 19:55] VITALS: BP 145/79; PULSE 82
== END 2018-11-28 19:54 | disposition home or self-care (01) ==
LOC: COL.ER 15:56
PROVIDERS: Emergency Medicine
DX: K85.90 Acute pancreatitis without necrosis or infection, unspecified (principal); F31.9 Bipolar disorder, unspecified; J44.9 Chronic obstructive pulmonary disease, unspecified; E11.9 Type 2 diabetes mellitus without complications; I10 Essential (primary) hypertension; K21.9 Gastro-esophageal reflux disease without esophagitis; Z79.82 Long term (current) use of aspirin; Z90.49 Acquired absence of other specified parts of digestive tract; Z79.4 Long term (current) use of insulin
CPT/HCPCS: J2270; J2405; J7030; Q9967